=== PATIENT | female | born 1980 | race Caucasian/White ===

== ENCOUNTER 2016-07-01 09:04 | Inpatient (IN) | payer BC, OTHER ==
[2016-07-01] VITALS (9 sets, daily range): BP systolic 110–123; BP diastolic 63–76; PULSE 81–97; RESP 16–18; TEMP 98.4–98.6; O2SAT 98–100
[~2016-07-01] VITALS: Ht 162.6 cm; Wt 77.7 kg
[~2016-07-01 09:04] MED LIST: PREN1TAB53 PO
[2016-07-01] MEDS ORDERED: CEFAZOLIN 2 GM in D5W 50ml 50 ML IV ONE (10:15)
[2016-07-01] MEDS ORDERED: CITRIC ACID/SODIUM CITRATE 30 ML PO ONE (10:15)
[2016-07-01] MEDS ORDERED: LIDOCAINE 1% (10mg/ml) 2ml SDV ID PRN (10:15)
[2016-07-01] MEDS ORDERED: FAMOTIDINE 20mg IVPB 50 ML IV ONE (10:15)
[2016-07-01] MEDS ORDERED: FOLI0.4T2 PO (10:16)
--- NOTE | 2016-07-01 10:34 | ANESOB ---
Epidural/ Date/Time DATE: 07/01/16 TIME: 10:33 Preop Diagnosis Procedure: Plan: Spinal Height: 5 ' 4.00 " Weight: kg BMI: kg/m2 P:2 Heart Rate: 130's Medications & Allergies Inpatient Medications Current Medications Medications (Trade) Dose Ordered Sig/James Start Time Stop Time Status Last Admin Dose Admin Lactated Ringer's (Lactated Ringers) 1,000 ml @ 150 mls/hr [id number] PRN 07/01/16 10:10 Lidocaine HCl (Xylocaine 1%) 0.2 mg PRN PRN 07/01/16 10:15 Folic Acid (Folic Acid) 0.4 Mg Tablet, 1 TAB PO DAILY, (Reported) Last Taken: on 06/30/162229 Vits W-Ca,Fe,Fa(<1MG) () 1 Tab Tablet, 1 TAB PO DAILY, (Reported) Last Taken: on 06/30/162229 Coded Allergies: No Known Drug Allergies (Verified Allergy, Unknown, 06/28/16) Medical/Surgical History Anesthesia PMH: Reports: , Denies: *Angina, *Diabetes, *Dyspnea, * Hypertension, *ME, Anesthesia Reactions (NO AIRWAY ISSUES), Arthritis, Asthma, Bld Transfusion Reaction, CHF, COPD, CVA/Stroke/TIA, Cancer, Clotting Problems, Glaucoma, Hepatitis, Hiatal Hernia, Pneumonia, Reflux, Renal Disease, Rheumatic Fever, Seizures, Sleep Apnea, Thyroid Disease, Tuberculosis Smoking Status: Never smoker Does patient use chewing tobac: No Second Hand Exposure: No Substance Use Type: does not use Alcohol Intake: none HX of Last Menstrual Period: AUGUST 2015 Anesthesia Adverse Reactions: FOUND none Family Hx of Anesthesia Advers: none Hx of Motion Sickness: No Complications During : No Pertinent Findings EKG Rhythm: Sinus Rhythm Physical Exam Respiratory: Lungs clear Cardiovascular: Regular rate, rhythm Airway Assessment Mallampati Score: II TMD: 3 Fingerbreadths Neck Extension: Good Overall Assessment: May Be Diff Intubation ASA: 2 Discussion Discussed risks/options/alternatives of anesthesia. Patient consents. Nursing pain assessment noted. Present for Discussion: Present: Spouse Attestation Statement Prior to the delivery of any anesthetic medication, I examined the patient, developed the plan, obtained the patient's consent and discussed the risk and benefits of the procedure with the patient/guardian. If the note happens to be signed after anesthesia start time, it is only due to providing efficient care of the patient and documenting at a time when the computer is available. JOE LOPEZ BI DATA MODELER Jul 01, 2016 10:34 JOE LOPEZ CRNA Jul 01, 2016 10:34
[2016-07-01] MEDS: LR 1,000 ML IV PRN ×2 (10:38→11:47)
[2016-07-01 10:53] LABS: BASOPHILS % (AUTO) 0.2 % (0-2); EOSINOPHILS # (AUTO) 0.1 T/MM3 (0-0.5); EOSINOPHILS % (AUTO) 0.4 % (0-4); HCT - HEMATOCRIT 38.7 % (36-46); HGB - HEMOGLOBIN 12.6 GM/DL (12-16); IMMATURE GRANULOCYTE # (AUTO) 0.11 T/MM3 (0.00-0.03); IMMATURE GRANULOCYTE % (AUTO) 0.9 % (0.0-0.5); LYMPHOCYTES # (AUTO) 2.3 T/MM3 (1-4.8); LYMPHOCYTES % (AUTO) 19.4 % (23-45); MEAN CORPUSCULAR HGB 28.4 UUG (26-34); MEAN CORPUSCULAR HGB CONC(MCHC 32.6 GM/DL (31-37); MEAN CORPUSCULAR VOLUME 87.2 UM3 (80-100); MONOCYTES # (AUTO) 0.7 T/MM3 (0-0.8); MONOCYTES % (AUTO) 6.4 % (0-9.0); NEUTROPHILS #(AUTO)-ABSOLUTE 8.4 T/MM3 (1.8-7.7); NEUTROPHILS % (AUTO) 72.7 % (33-66); RED BLOOD COUNT 4.44 M/MM3 (4.00-5.20); WBC - WHITE BLOOD COUNT 11.6 T/MM3 (4.5-11.0)
[2016-07-01] MEDS ORDERED: MORPHINE SULFATE PF 5mg/10ml VL (DURAMORPH) ONE (11:46)
[2016-07-01] MEDS ORDERED: PHENYLEPHRINE 10mg/ml INJECTION ONE (11:49)
[2016-07-01] MEDS ORDERED: GLYCOPYRROLATE 0.4mg/2ml INJECTION ONE (12:21)
[2016-07-01] MEDS ORDERED: DiphenhydrAMINE 50 MG/ML INJECTION IV PRN (12:30)
[2016-07-01] MEDS ORDERED: NALBUPHINE 10mg/ml INJECTION IV PRN (12:30)
[2016-07-01] MEDS ORDERED: NALOXONE 0.4mg/ml INJECTION IV PRN (12:30)
[2016-07-01] MEDS ORDERED: ONDANSETRON 4mg/2ml INJECTION IV PRN (12:30)
[2016-07-01] MEDS ORDERED: METOCLOPRAMIDE 10mg/2ml INJECTION IV PRN (12:30)
[2016-07-01] MEDS ORDERED: OXYTOCIN 30 UNIT in D5LR 500 ML IV SCH (12:39)
[2016-07-01] MEDS ORDERED: HYDROCORTISONE 2.5% CREAM 30 GM RECTALLY PRN (12:45)
[2016-07-01] MEDS ORDERED: DiphenhydrAMINE 25 MG CAPSULE PO PRN (12:45)
[2016-07-01] MEDS ORDERED: CALCIUM CARBONATE 500mg Chewable TAB PO PRN (12:45)
[2016-07-01] MEDS ORDERED: ACETAMINOPHEN 500 MG TABLET PO PRN (12:45)
[2016-07-01] MEDS ORDERED: MILK OF MAGNESIA 30 ML SUSP PO PRN (12:45)
[2016-07-01] MEDS: D5LR 1,000 ML IV SCH ×2 (13:24→20:38)
--- NOTE | 2016-07-01 14:38 | OPNOTEF ---
DATE OF SURGERY: 07/01/2016 PREOPERATIVE DIAGNOSIS 1. 35-year-old white female, G5, P2, at 39.2 weeks gestational age. 2. Previous x 2. POSTOPERATIVE DIAGNOSIS 1. Female infant, 78/9 Apgars (Jing Jose), 3556gm 2. Thin lower uterine segment. PROCEDURE: Repeat low transverse section. ANESTHESIA: Spinal by Gavin Benton CRNA SURGEON: Shade Chou MD REMOTE PILOT OPERATOR: Belkis Lu MD EBL: 700 ml COMPLICATIONS: went to the special care nursery after delivery. DESCRIPTION OF PROCEDURE After adequate spinal anesthesia, the patient was prepped and draped in the left lateral decubitus position. A Pfannenstiel skin incision was made with a sharp knife and carried down the fascia, which was incised transversely with the Galo scissors. Old scar was removed. The rectus fascia was bluntly and sharply dissected off the rectus muscle. The rectus muscle was divided, and the peritoneum was isolated, elevated, entered with the Metzenbaum scissors and extended cephalad and caudad. The bladder blade was then inserted. The lower vesicouterine fold of the peritoneum was isolated and incised transversely. The bladder was bluntly dissected off the lower uterine segment. The bladder blade was reinserted. Lower uterine segment was thin. Then using a sharp knife, a transverse incision was made in the lower uterine segment above the thin part. This was extended with my fingers. Female was delivered from the vertex position without difficulty. was bulb suctioned after delivery of the head and then again after delivery of the body. Cord was doubly clamped and cut and the was taken to the isolette and received by the FARHAT Swan. The placenta was expressed manually and was intact. The uterus was then allowed to fall upon the external abdominal wall. The endometrial cavity was cleansed using moist lap sponges. The uterus was closed using 0-Monocryl in a running locking fashion. Hemostasis was confirmed. The bladder flap was then reapproximated with the visceral peritoneum using 3-0 Vicryl in a running nonlocking fashion. The posterior cul-de-sac was cleansed of old blood clots and the tubes and ovaries were examined and found to be normal in size, shape and appearance. After hemostasis was again confirmed, the uterus was then carefully returned to the abdominal cavity. The abdomen was then closed in layers. The peritoneum was closed using 2-0 Vicryl in running nonlocking fashion. The fascia was closed using 0-Vicryl in a running nonlocking fashion bilaterally from the lateral aspects medially. Hemostasis was achieved with the subcutaneous tissue and then the skin was closed with 4-[address] Lu.. The patient tolerated the procedure well and went to the recovery room in stable condition. Pad, sponge and needle counts were correct and urine postop was clear and free flowing. MTDD
--- NOTE | 2016-07-01 16:51 | ANESPO ---
Post-Op Note Date 07/01/16 Time: 15:25 Status Pt Participated in Evaluation: Pt participated in person Vital Signs Date Time Temp Pulse Resp B/P Pulse Ox O2 Delivery O2 Flow Rate FiO2 07/01/16 14:59 18 98 07/01/16 10:45 98.4 97 123/76 Room Air Respiratory Function: Airway patent Cardiovascular Function: Regular pulse Mental Status: Alert/oriented Pain Level Intensity: 0 Hydration: Taking po fluids Complications during Recovery None apparent Follow-Up Instructions Instructions Per Surgeon JESS NINA CRNA Jul 01, 2016 16:51
--- NOTE | 2016-07-01 17:24 | PNPDOC ---
Prog Note 07/01/16 POD#0 Patient is comfortable, no complaints. Pain is well controlled at this time. AFVSS. Exam unremarkable. Plan for routine post-op care. Check H/H at 1800. Questions solicited and answered. SHAKILA LONG MD Jul 01, 2016 17:24
--- NOTE | 2016-07-01 17:30 | NUR ---
Activity Patient sits at bedside, ambulates to WC. Tolerates well. Patient and visit in nursery for about an hour. She is wheeled back to room and sits in bedside chair and eats supper tray. Tolerates PO well.
[2016-07-01 18:16] LABS: HCT - HEMATOCRIT 37.9 % (36-46); HGB - HEMOGLOBIN 12.4 GM/DL (12-16); MEAN CORPUSCULAR HGB 28.5 UUG (26-34); MEAN CORPUSCULAR HGB CONC(MCHC 32.7 GM/DL (31-37); MEAN CORPUSCULAR VOLUME 87.1 UM3 (80-100); MEAN PLATELET VOLUME 10.1 UM3 (9.4-12.4); RED BLOOD COUNT 4.35 M/MM3 (4.00-5.20); WBC - WHITE BLOOD COUNT 11.7 T/MM3 (4.5-11.0)
[2016-07-01] MEDS: SIMETHICONE 80 MG CHEWABLE TABLET PO CHEW SCH ×3 (18:30→21:35)
--- NOTE | 2016-07-01 20:34 | NUR ---
Activity Patient up to WC, visiting nursery at this time. Holding infant, tolerating activity well, rates pain 1-2 on 0-10 pain scale. No c/o nausea, will continue to monitor, denies any needs at this time.
[2016-07-02] VITALS (11 sets, daily range): BP systolic 109–126; BP diastolic 67–78; PULSE 67–93; RESP 16–18; TEMP 97.4–98.5; O2SAT 97–99
[2016-07-02] MEDS: IBUPROFEN 800 MG TABLET PO PRN ×3 (01:58→17:45)
--- NOTE | 2016-07-02 02:05 | NUR ---
Shift Summary Patient up ad kristina, performing all self cares independently. Dressing dry and intact. PO ibuprofen adequate for pain relief at this time. IV saline locked, as patient tolerates PO fluids and food with no nausea. Patient visits the nursery twice this shift by WC, able to hold and jason with infant.
--- NOTE | 2016-07-02 08:11 | PNPDOC ---
Progress Note PPD1 Rubella: Immune GBS: Negative Blood Type:O pos Subjective 07/02/16 Lochia: Moderate Pain: Controlled Voiding: Voiding Nausea and Vomiting: No Nausea/Vomiting Objective VSS AF Vital Signs Date Time Temp Pulse Resp B/P Pulse Ox O2 Delivery O2 Flow Rate FiO2 07/02/16 06:10 16 98 07/02/16 06:00 84 126/78 Room Air 07/02/16 02:01 98.4 General: Alert and Oriented Respiratory: Non-labored Abdomen: Fundus Firm Incision: Clean/Dry/Intact Extremities: Non-tender Edema: None Laboratory Item Value Date Time White Blood Count 11.7 T/MM3 H 07/01/16 1801 Hemoglobin 12.4 GM/DL 07/01/16 1801 Platelet Count 208 T/MM3 07/01/16 1801 Assessment Repeat C/S Plan Routine Care DANO MCGREGOR NAILING MACHINE OPERATOR Jul 02, 2016 08:11
[2016-07-02] MEDS: DOCUSATE CALCIUM 240 MG CAPSULE PO SCH (08:39)
[2016-07-02] MEDS: SIMETHICONE 80 MG CHEWABLE TABLET PO CHEW SCH ×4 (08:39→22:21)
--- NOTE | 2016-07-02 13:55 | NUR ---
Shift summary Patient up and about caring or self and now baby. Shukla, SCDs and IVL discontinued. Pt has ambulated in hallway to [facility]. Now baby has transitioned to room with parents. Pain controlled by Ibuprofen only. Fundus firm. Lochia small to moderate. Dressing has been removed by Kristen Edgar CRNA. Wearing abdominal binder. Bonding well with baby.
[2016-07-02] MEDS: HYDROCODONE/APAP 5 mg/325 mg TABLET PO PRN ×2 (17:45→22:24)
[2016-07-03 00:40] VITALS: BP 130/66; PULSE 76; RESP 16; TEMP 97.9; O2SAT 98
[2016-07-03] MEDS: IBUPROFEN 800 MG TABLET PO PRN ×2 (01:59→10:08)
[2016-07-03] MEDS: HYDROCODONE/APAP 5 mg/325 mg TABLET PO PRN (02:26)
--- NOTE | 2016-07-03 02:55 | NUR ---
Shift summary Pt VSS, voiding without difficulty, reports vaginal bleeding WNL, denies clots, eating and drinking well, taking Ibuprofen and [place] or abdominal discomfort, reports meds helping, ambulates in hallways on own, Nurses well without assistance. Will plan to go home today if all is going good with , Incision is well approximated, steri strips in place. Sends to the nursery during night between feeds, FOB home during night with other children. Will continue to monitor per POC.
--- NOTE | 2016-07-03 02:55 | NUR ---
Chart Check 24 hour chart check completed
[2016-07-03 07:45] VITALS: BP 120/73; RESP 18; TEMP 97.7; O2SAT 98
[2016-07-03] MEDS: DOCUSATE CALCIUM 240 MG CAPSULE PO SCH (10:09)
[2016-07-03] MEDS: SIMETHICONE 80 MG CHEWABLE TABLET PO CHEW SCH (10:10)
[2016-07-03] MEDS ORDERED: IBUP-1547 PO (11:25)
[2016-07-03] MEDS ORDERED: HYDR-4246 PO (11:25)
--- NOTE | 2016-07-03 22:02 | PNF ---
DATE 07/03/2016 LATE ENTRY NOTE This is postop day #2 of mine from Friday. I saw her yesterday morning and afternoon and she was doing well both times. Today I made rounds about the noontime and the patient was doing well. Incision looked fine. Vital signs are fine. Hemoglobin postop was stable yesterday. She wants to go home today. Discharge instructions were given. Planning was made. Follow up in one week whenever she needs to come in for a baby appointment. Questions were answered to her and her 's satisfaction. JEREMY
== END 2016-07-03 15:40 | disposition home or self-care (01) | DRG 766 ==
LOC: MC 10:08
PROVIDERS: ADMIT Obstetrics & Gynecology; ATTEND Obstetrics & Gynecology
PROC: 10D00Z1 Extraction of Products of Conception, Low, Open Approach (ICD-10-PCS; principal; 2016-07-01 12:00)
DX: O34.211 Maternal care for low transverse scar from previous cesarean delivery (principal); N85.8 Other specified noninflammatory disorders of uterus; O94 Sequelae of complication of pregnancy, childbirth, and the puerperium; O09.893 Supervision of other high risk pregnancies, third trimester; Z3A.39 39 weeks gestation of pregnancy; Z37.0 Single live birth
CPT/HCPCS: 36415; 85025; 85027; 86850; 86900; 86901